=== PATIENT | female | born 1985 | race Caucasian/White ===

== ENCOUNTER 2016-11-27 06:48 | Inpatient (IN) | payer MEDICAID ==
[~2016-11-27] VITALS: Ht 167.6 cm; Wt 111.3 kg
[2016-11-27] VITALS (45 sets, daily range): BP systolic 53–151; BP diastolic 28–79
[~2016-11-27 06:48] MED LIST: FEXO180T84 PO; LETR2.5T5 PO; MONT10TA24 PO; MULT1TAB69 PO; OXYC-202 PO
[2016-11-27] MEDS ORDERED: D5 LR IV SOLUTION 1,000 ML IV ONE (07:13)
[2016-11-27] MEDS ORDERED: D5 LR IV SOLUTION 1,000 ML IV SCH (07:31)
[2016-11-27] MEDS ORDERED: OXYTOCIN/NORMAL SALINE 500 ML IV SCH ×2 (07:31→07:32)
--- NOTE | 2016-11-27 07:39 | OB Bishop Score ---
Parada Score 9 GAVINO PLAZA MD Nov 27, 2016 7:39 am
--- NOTE | 2016-11-27 07:42 | History & Physical ---
History and Physical Date Seen by Provider: Nov 27, 2016 Time Seen by Provider: 07:40 this patient is a 31-year-old white female with an EDC of 9 [phone] putting her now at 39 weeks gestation. She was admitted for induction of labor. She's had no complications with this . Her GBS culture after 35 weeks gestation was negative. She denies rupture membranes or bleeding. She has only rare contractions. Allergies are to aspirin which causes facial swelling and on and oil which causes swelling in the throat Medications are vitamins Singulair and Zyrtec Asked medical history, past surgical history, obstetric history, family history , and social histories are per the antepartum record HEENT exam is normal Neck supple no lymphadenopathy no thyromegaly Abdomen is gravid soft nontender nondistended Extremities show no clubbing cyanosis. There is no Homans sign. Pelvic exam is pending Lab is pending monitor shows normal heart rate pattern with some uterine irritability Assessment and plan term at 39 weeks gestation admitted for induction of labor electively. Plan is for an epidural as desired. Anticipate vaginal delivery. the elective induction of labor at 39 weeks gestation Allergies and Home Medications Allergies Coded Allergies: aspirin (Verified Allergy, Unknown, facial swelling, 12/13/15) Home Medications Fexofenadine HCl 180 Mg Tablet, 180 MG PO HS, (Reported) Letrozole 2.5 Mg Tablet, 2.5 MG PO DAILY, #5 Prescribed by: GAVINO MALHOTRA on 12/16/15 075 Montelukast Sodium 10 Mg Tablet, 10 MG PO HS, (Reported) Multivitamin 1 Each Tablet, 1 EACH PO HS, (Reported) Oxycodone HCl/Acetaminophen 1 Each Tablet, 1-2 TAB PO Q4H PRN for PAIN, #60 Prescribed by: GAVINO MALHOTRA on 12/16/15 075 GAVINO PLAZA MD Nov 27, 2016 7:42 am
[2016-11-27] MEDS ORDERED: MEASLES,MUMPS,RUBELLA 1 EA INJ SC ONE (07:45)
[2016-11-27] MEDS ORDERED: TETANUS,DIPTH,PERTUSS P/F (BOOSTRIX) 0.5 ML VIAL IM ONE (07:45)
[2016-11-27] MEDS ORDERED: oxyCODONE/APAP 10/325MG (PERCOCET 10) TABLET PO PRN (07:45)
[2016-11-27] MEDS ORDERED: CATHETER FLUSH 10 ML SYR IV PRN (07:45)
[2016-11-27 08:17] LABS: BASOPHILS % (AUTO) 0 % (0-10); EOSINOPHILS # (AUTO) 0.2 10^3/uL (0.0-0.3); EOSINOPHILS % (AUTO) 2 % (0-10); LYMPHOCYTES # (AUTO) 1.7 X 10^3 (1.0-4.0); LYMPHOCYTES % (AUTO) 18 % (12-44); MEAN CORPUSCULAR HEMOGLOBIN 28 PG (25-34); MEAN CORPUSCULAR HGB CONC 33 G/DL (32-36); MEAN CORPUSCULAR VOLUME 84 FL (80-99); MEAN PLATELET VOLUME 11.9 FL (7.4-10.4); MONOCYTES # (AUTO) 0.9 X 10^3 (0.0-1.0); MONOCYTES % (AUTO) 9 % (0-12); NEUTROPHILS # (AUTO) 6.5 X 10^3 (1.8-7.8); NEUTROPHILS % (AUTO) 70 % (42-75); PLATELET COUNT 178 10^3/uL (130-400); RED CELL DISTRIBUTION WIDTH 13.7 % (10.0-14.5); WHITE BLOOD COUNT 9.3 10^3/uL (4.3-11.0)
[2016-11-27] MEDS ORDERED: SUFENTA 0.6MCG/ML BUPIVA 0.125 100 ML ONE (08:21)
[2016-11-27] MEDS ORDERED: LIDOCAINE/EPI 2% 1:200,00 (XYLOCAINE) 10 ML VIAL ONE (08:22)
[2016-11-27] MEDS ORDERED: fentaNYL INJECTION 100 MCG/2 ML AMP ONE (09:46)
[2016-11-27] MEDS ORDERED: LACTATED RINGERS 1,000 ML IV ONE (10:25)
[2016-11-27] MEDS ORDERED: PREN1TAB86 PO ×2 (10:28→10:30)
[2016-11-27] MEDS ORDERED: CETI10CA PO (10:28)
[2016-11-27] MEDS ORDERED: EPIDURAL (SUFENTA 0.6MCG/ML BUPIVA 0.125%) 100 ML BAG EPI PRN (10:30)
[2016-11-27] MEDS ORDERED: ONDANSETRON 4 MG/2 ML (SDV) Z0FRAN IV PRN (10:30)
[2016-11-27] MEDS ORDERED: NALOXONE 0.4 MG/ML 1 ML (NARCAN) VIAL IV PRN ×2 (10:30)
[2016-11-27] MEDS ORDERED: diphenhydrAMINE 50 MG/ML INJ (BENADRYL) IV PRN (10:30)
[2016-11-27] MEDS ORDERED: RANI150T15 PO (10:30)
[2016-11-27] MEDS ORDERED: METOCLOPRAMIDE INJ 10 MG/2 ML (REGLAN) IV PRN (10:30)
[2016-11-27] MEDS ORDERED: LIDOCAINE/EPI 2% 1:200,00 (XYLOCAINE) 10 ML VIAL INJ ONE (12:33)
[2016-11-27] MEDS ORDERED: METHYLERGONOVINE 0.2 MG/ML (METHERGINE) AMP IM ONE (12:55)
[2016-11-27] MEDS ORDERED: METHYLERGONOVINE 0.2 MG/ML (METHERGINE) AMP ONE (12:56)
[2016-11-27] MEDS: BENZOCAINE/MENTHOL (DERMOPLAST) 56 ML CAN TP PRN (14:13)
[2016-11-27] MEDS: HYDROcodone/APAP 7.5 MG/325 MG (LORTAB, LORCET PLUS) TABLET PO PRN ×2 (16:30→20:33)
[2016-11-27] MEDS ORDERED: WITCH HAZEL(TUCKS) 40 EA JAR TOP PRN ×2 (17:45→19:00)
[2016-11-27] MEDS ORDERED: DIBUCAINE (NUPERCAINAL) 1% OINT 30 GM TOP PRN (17:45)
[2016-11-27] MEDS: DOCUSATE SODIUM 100 MG (COLACE) CAP PO SCH (20:32)
[2016-11-28] MEDS: HYDROcodone/APAP 7.5 MG/325 MG (LORTAB, LORCET PLUS) TABLET PO PRN ×4 (02:07→17:24)
[2016-11-28 06:28] VITALS: BP 108/71
--- NOTE | 2016-11-28 07:00 | OPERATIVE REPORT ---
DATE OF SERVICE: 11/27/2016 The patient delivered by term spontaneous vaginal delivery a viable female infant with Apgars of 8 and 9 at 1 and 5 respectively, weight 7 pounds 10 ounces, time of 12:45. The infant was delivered from straight OP position over an episiotomy that was performed at the patient's request as she could not push the baby out straight OP. The episiotomy was performed and the baby was delivered fairly promptly with the next series of pushes. The had a shoulder cord that was slipped off of each shoulder and the delivery completed atraumatically. The infant was bulb suctioned on delivery of the head and again upon completion of delivery. Umbilical cord was doubly clamped when it was pulseless. The father cut the cord. The baby was passed to mom's abdomen. The cervix, vagina, rectum and perineum were examined and found intact except for the midline episiotomy which was repaired in the usual manner with a single suture of 3-0 Vicryl Rapide. The uterus was somewhat atonic responding eventually to IV Pitocin and finally to a single dose of IM Methergine. Estimated blood loss was right at 500 mL. The patient tolerated the delivery and recovery well and remained in LDR for recovery. The baby was remained in the LDR with the mother for recovery as well. Job ID: [id number] DocumentID: [id number] Dictated Date: 11/27/2016 15:21:17 Relief Manager Date: 11/28/2016 07:00:33 Dictated By: GAVINO PLAZA MD
--- NOTE | 2016-11-28 07:19 | Progress Note-Standard ---
Standard Progress Note Progress Notes/Assess & Plan Date Seen by Provider: Nov 28, 2016 Time Seen by Provider: 07:17 Progress/Assessment & Plan this patient is without complaint. She is ambulating, voiding, tolerating by mouth well, has good pain control. Patient is requesting discharge home. She denies chest pain, denies shortness breath, denies nausea, denies headache, denies dizziness or lightheadedness. Vital Signs Date Time Temp Pulse Resp B/P (MAP) Pulse Ox O2 Delivery O2 Flow Rate FiO2 11/28/16 06:28 98.4 102 18 108/71 97 Room Air 11/27/16 23:15 98.2 93 18 105/63 97 Room Air 11/27/16 20:10 99.0 102 18 112/61 97 Room Air 11/27/16 15:15 92 18 119/56 Room Air 11/27/16 15:00 95 18 123/59 Room Air 11/27/16 14:45 95 18 116/58 Room Air 11/27/16 14:30 97 18 110/57 Room Air 11/27/16 14:15 105 18 117/57 Room Air 11/27/16 14:00 98.1 120 18 131/60 Room Air 11/27/16 13:45 90 18 103/56 Room Air 11/27/16 13:33 96 18 99/58 Room Air 11/27/16 13:30 99 18 103/56 Room Air 11/27/16 13:24 87 18 104/52 Room Air 11/27/16 13:20 84 18 75/46 Room Air 11/27/16 13:06 96 18 91/55 99 Room Air 11/27/16 13:04 100 18 53/28 99 Room Air 11/27/16 13:03 96 18 61/28 99 Room Air 11/27/16 13:01 87 18 71/32 99 Room Air 11/27/16 13:00 79 18 80/44 99 Room Air 11/27/16 12:46 129 18 117/67 99 Room Air 11/27/16 12:15 118 18 151/70 99 Room Air 11/27/16 12:00 106 18 146/65 99 Room Air 11/27/16 11:45 101 18 132/67 99 Room Air 11/27/16 11:30 98.0 93 18 128/66 100 Room Air 11/27/16 11:15 89 18 126/76 99 Room Air 11/27/16 11:00 96 18 125/72 99 Room Air 11/27/16 10:45 94 18 121/61 98 Room Air 11/27/16 10:30 93 18 106/54 97 Room Air 11/27/16 10:15 95 18 113/55 96 Room Air 11/27/16 10:09 106 18 116/57 97 Room Air 11/27/16 10:06 97 18 117/57 97 Room Air 11/27/16 10:03 105 18 129/58 97 Room Air 11/27/16 10:00 98.2 102 18 105/53 98 Room Air 11/27/16 09:57 103 18 115/58 98 Room Air 11/27/16 09:54 110 18 117/58 98 Room Air 11/27/16 09:51 117 18 135/73 98 Room Air 11/27/16 09:48 100 18 133/71 99 Room Air 11/27/16 09:46 105 18 138/73 99 Room Air 11/27/16 09:30 102 18 126/76 Room Air 11/27/16 09:00 98.2 101 18 143/79 Room Air 11/27/16 08:45 100 18 135/74 Room Air 11/27/16 08:30 96 18 125/65 Room Air 11/27/16 08:15 95 18 126/67 Room Air 11/27/16 08:00 100 18 126/72 Room Air 11/27/16 07:45 100 18 111/59 Room Air Vital signs are stable. Patient is afebrile. Fundus is firm below the umbilicus and nontender. Extremities show no clubbing cyanosis. There is no Homans sign. There is some pretibial pitting edema that is normal. Assessment and plan day number 1 status post term spontaneous vaginal delivery at 39 weeks gestation. Patient doing well and will be allowed discharge home. Final Diagnosis spontaneous vaginal delivery at 39 weeks gestation GAVINO PLAZA MD Nov 28, 2016 7:19 am
[2016-11-28] MEDS ORDERED: DOCU100C37 PO (07:20)
[2016-11-28] MEDS ORDERED: OXYC-202 PO (07:20)
--- NOTE | 2016-11-28 07:21 | Discharge Instructions ---
Discharge Instructions Discharge Medications New, Converted or Re-Newed RX: RX on Chart Patient Instructions Patient Instructions: as directed Return to The Hospital For: as directed Activity & Diet Discharge Diet: No Restrictions Activity as Tolerated: No Orders-Post D/C & Referrals Follow Up Appt: Call to make follow up appt. for patient in 4 to 6 weeks. Activity Per routine post vaginal delivery instructions. Please call in RX to patient pharmacy. Diet as tolerated Patient may shower or tub bathe as desired. GAVINO PLAZA MD Nov 28, 2016 7:21 am
[2016-11-28] MEDS: DOCUSATE SODIUM 100 MG (COLACE) CAP PO SCH ×2 (09:26→21:30)
--- NOTE | 2016-11-28 13:06 | Anesthesia-Regional Post-Op ---
Regional Patient Condition Mental Status: Alert, Oriented x3 Circulation: Same as Pre-Op Headache: Absent Sensation: Full Recovery Motor Block: Absent Post Op Complications Complications None Follow Up Care/Instructions Patient Instructions None needed. Anesthesia/Patient Condition Patient is doing well, no complaints, stable vital signs, no apparent adverse anesthesia problems. No complications reported per nursing. KENNA GARCIA CRNA Nov 28, 2016 13:06
[2016-11-28 17:25] VITALS: BP 119/60
[2016-11-28 21:42] VITALS: BP 125/72
[2016-11-29] MEDS: HYDROcodone/APAP 7.5 MG/325 MG (LORTAB, LORCET PLUS) TABLET PO PRN ×2 (03:13→08:42)
[2016-11-29 03:15] VITALS: BP 117/70
[2016-11-29] MEDS: BENZOCAINE/MENTHOL (DERMOPLAST) 56 ML CAN TP PRN (06:47)
--- NOTE | 2016-11-29 08:24 | Progress Note-Standard ---
Standard Progress Note Progress Notes/Assess & Plan Date Seen by Provider: Nov 29, 2016 Time Seen by Provider: 08:23 Progress/Assessment & Plan this patient is without complaint. She is ambulating, voiding, tolerating by mouth well, has good pain control. Patient is requesting discharge home. She denies chest pain, denies shortness breath, denies nausea, denies headache, denies dizziness or lightheadedness. Vital Signs Date Time Temp Pulse Resp B/P (MAP) Pulse Ox O2 Delivery O2 Flow Rate FiO2 11/28/16 06:28 98.4 102 18 108/71 97 Room Air 11/27/16 23:15 98.2 93 18 105/63 97 Room Air 11/27/16 20:10 99.0 102 18 112/61 97 Room Air 11/27/16 15:15 92 18 119/56 Room Air 11/27/16 15:00 95 18 123/59 Room Air 11/27/16 14:45 95 18 116/58 Room Air 11/27/16 14:30 97 18 110/57 Room Air 11/27/16 14:15 105 18 117/57 Room Air 11/27/16 14:00 98.1 120 18 131/60 Room Air 11/27/16 13:45 90 18 103/56 Room Air 11/27/16 13:33 96 18 99/58 Room Air 11/27/16 13:30 99 18 103/56 Room Air 11/27/16 13:24 87 18 104/52 Room Air 11/27/16 13:20 84 18 75/46 Room Air 11/27/16 13:06 96 18 91/55 99 Room Air 11/27/16 13:04 100 18 53/28 99 Room Air 11/27/16 13:03 96 18 61/28 99 Room Air 11/27/16 13:01 87 18 71/32 99 Room Air 11/27/16 13:00 79 18 80/44 99 Room Air 11/27/16 12:46 129 18 117/67 99 Room Air 11/27/16 12:15 118 18 151/70 99 Room Air 11/27/16 12:00 106 18 146/65 99 Room Air 11/27/16 11:45 101 18 132/67 99 Room Air 11/27/16 11:30 98.0 93 18 128/66 100 Room Air 11/27/16 11:15 89 18 126/76 99 Room Air 11/27/16 11:00 96 18 125/72 99 Room Air 11/27/16 10:45 94 18 121/61 98 Room Air 11/27/16 10:30 93 18 106/54 97 Room Air 11/27/16 10:15 95 18 113/55 96 Room Air 11/27/16 10:09 106 18 116/57 97 Room Air 11/27/16 10:06 97 18 117/57 97 Room Air 11/27/16 10:03 105 18 129/58 97 Room Air 11/27/16 10:00 98.2 102 18 105/53 98 Room Air 11/27/16 09:57 103 18 115/58 98 Room Air 11/27/16 09:54 110 18 117/58 98 Room Air 11/27/16 09:51 117 18 135/73 98 Room Air 11/27/16 09:48 100 18 133/71 99 Room Air 11/27/16 09:46 105 18 138/73 99 Room Air 11/27/16 09:30 102 18 126/76 Room Air 11/27/16 09:00 98.2 101 18 143/79 Room Air 11/27/16 08:45 100 18 135/74 Room Air 11/27/16 08:30 96 18 125/65 Room Air 11/27/16 08:15 95 18 126/67 Room Air 11/27/16 08:00 100 18 126/72 Room Air 11/27/16 07:45 100 18 111/59 Room Air Vital signs are stable. Patient is afebrile. Fundus is firm below the umbilicus and nontender. Extremities show no clubbing cyanosis. There is no Homans sign. There is some pretibial pitting edema that is normal. Assessment and plan day number 1 status post term spontaneous vaginal delivery at 39 weeks gestation. Patient doing well and will be allowed discharge home. November 29, 2016 Patient is without complaint. Her discharge yesterday was held secondary to increased bilirubin in her baby. She has regular rate for discharge home today. She is ambulating, voiding, tolerating fairly well, has no complaints. Vital Signs Date Time Temp Pulse Resp B/P (MAP) Pulse Ox O2 Delivery O2 Flow Rate FiO2 11/29/16 03:15 98.8 86 18 117/70 97 11/28/16 21:42 98.6 93 18 125/72 99 Room Air 11/28/16 17:25 97.4 88 18 119/60 99 Room Air Vital signs are stable. Patient is afebrile. Fundus is firm below the umbilicus and nontender. Extremities show no clubbing or cyanosis. There is no Homans sign. Assessment and plan day number 2 status post term spontaneous vaginal delivery at 39 weeks gestation. Patient is doing well and will be discharged home. If her baby is not released she will be allowed to remain in Final Diagnosis 39 week spontaneous vaginal delivery GAVINO PLAZA MD Nov 29, 2016 8:24 am
[2016-11-29 08:35] VITALS: BP 119/79
[2016-11-29] MEDS: DOCUSATE SODIUM 100 MG (COLACE) CAP PO SCH (08:43)
== END 2016-11-29 13:15 | disposition home or self-care (01) | DRG 775 ==
LOC: LDRP 06:48
PROVIDERS: ADMIT Obstetrics & Gynecology; ATTEND Obstetrics & Gynecology
PROC: 10E0XZZ Delivery of Products of Conception, External Approach (ICD-10-PCS; principal; 2016-11-27)
PROC: 0W8NXZZ Division of Female Perineum, External Approach (ICD-10-PCS; 2016-11-27)
PROC: 3E033VJ Introduction of Other Hormone into Peripheral Vein, Percutaneous Approach (ICD-10-PCS; 2016-11-27)
DX: O80 Encounter for full-term uncomplicated delivery (principal); Z3A.39 39 weeks gestation of pregnancy; Z37.0 Single live birth
CPT/HCPCS: 36415; 85025; 86850; 86900; 86901

== ENCOUNTER 2017-09-29 09:51 | Inpatient (IN) | payer MEDICAID ==
[~2017-09-29] VITALS: Ht 165.1 cm; Wt 112.2 kg
[2017-09-29] VITALS (43 sets, daily range): BP systolic 76–150; BP diastolic 35–87
[~2017-09-29 09:51] MED LIST changes: +CETI10CA PO; +DOCU100C37 PO; +PREN1TAB86 PO; +RANI150T46 PO
[2017-09-29] MEDS ORDERED: D5 LR IV SOLUTION 1,000 ML IV ONE (10:59)
[2017-09-29] MEDS ORDERED: D5 LR IV SOLUTION 1,000 ML IV SCH ×2 (11:38→11:43)
[2017-09-29] MEDS ORDERED: OXYTOCIN/NORMAL SALINE 500 ML IV SCH ×2 (11:43→18:47)
[2017-09-29] MEDS ORDERED: MINERAL OIL CONCENTRATE 99.9% 15 ML UDC TOP PRN (11:45)
[2017-09-29] MEDS ORDERED: DOCU100C37 PO (11:48)
[2017-09-29] MEDS ORDERED: OXYC-197 PO (11:48)
--- NOTE | 2017-09-29 11:49 | Discharge Instructions ---
Discharge Instructions Discharge Medications New, Converted or Re-Newed RX: RX on Chart Patient Instructions Patient Instructions: As directed Return to The Hospital For: As directed Activity & Diet Discharge Diet: No Restrictions Activity as Tolerated: No Orders-Post D/C & Referrals Follow Up Appt: Call to make follow up appt. for patient in 4 weeks. Activity Per routine post vaginal delivery instructions. Please call in RX to patient pharmacy. Diet as tolerated Patient may shower or tub bathe as desired. GAVINO PLAZA MD Sep 29, 2017 11:49 am
[2017-09-29 11:57] LABS: BASOPHILS % (AUTO) 0 % (0-10); EOSINOPHILS # (AUTO) 0.1 10^3/uL (0.0-0.3); EOSINOPHILS % (AUTO) 1 % (0-10); HEMATOCRIT 32 % (35-52); HEMOGLOBIN 9.9 G/DL (11.5-16.0); LYMPHOCYTES # (AUTO) 1.6 X 10^3 (1.0-4.0); LYMPHOCYTES % (AUTO) 16 % (12-44); MEAN CORPUSCULAR HEMOGLOBIN 24 PG (25-34); MEAN CORPUSCULAR HGB CONC 31 G/DL (32-36); MEAN CORPUSCULAR VOLUME 75 FL (80-99); MEAN PLATELET VOLUME 11.7 FL (7.4-10.4); MONOCYTES % (AUTO) 10 % (0-12); NEUTROPHILS # (AUTO) 7.1 X 10^3 (1.8-7.8); NEUTROPHILS % (AUTO) 73 % (42-75); PLATELET COUNT 196 10^3/uL (130-400); RED BLOOD COUNT 4.19 10^6/uL (4.35-5.85); RED CELL DISTRIBUTION WIDTH 16.3 % (10.0-14.5); WHITE BLOOD COUNT 9.8 10^3/uL (4.3-11.0)
[2017-09-29] MEDS ORDERED: SUFENTA 0.6MCG/ML BUPIVA 0.125 100 ML ONE (12:04)
[2017-09-29] MEDS ORDERED: BUPIVACAINE 0.25% 30 ML (SENSORCAINE) VIAL ONE (12:15)
[2017-09-29] MEDS ORDERED: fentaNYL INJECTION 100 MCG/2 ML AMP ONE (12:16)
[2017-09-29] MEDS ORDERED: LACTATED RINGERS 1,000 ML IV ONE (12:48)
[2017-09-29] MEDS ORDERED: CATHETER FLUSH 10 ML SYR IV PRN (13:00)
[2017-09-29] MEDS ORDERED: diphenhydrAMINE 50 MG/ML INJ (BENADRYL) IV PRN (13:00)
[2017-09-29] MEDS ORDERED: NALOXONE 0.4 MG/ML 1 ML (NARCAN) VIAL IV PRN (13:00)
[2017-09-29] MEDS ORDERED: ONDANSETRON 4 MG/2 ML (SDV) Z0FRAN IV PRN (13:00)
[2017-09-29] MEDS ORDERED: EPIDURAL (SUFENTA 0.6MCG/ML BUPIVA 0.125%) 100 ML BAG EPI SCH (13:00)
[2017-09-29] MEDS ORDERED: CATHETER FLUSH 10 ML SYR IV SCH (14:00)
[2017-09-29] MEDS ORDERED: LIDOCAINE/EPI 2% 1:200,00 (XYLOCAINE) 10 ML VIAL ONE (15:28)
[2017-09-29] MEDS ORDERED: METHYLERGONOVINE 0.2 MG/ML (METHERGINE) AMP ONE (16:48)
[2017-09-29] MEDS ORDERED: METHYLERGONOVINE 0.2 MG/ML (METHERGINE) AMP IM ONE (17:00)
[2017-09-29] MEDS ORDERED: TETANUS,DIPTH,PERTUSS P/F (BOOSTRIX) 0.5 ML VIAL IM ONE (19:00)
[2017-09-29] MEDS ORDERED: oxyCODONE/APAP 5/325MG (PERCOCET 5) TABLET PO PRN (19:00)
[2017-09-29] MEDS ORDERED: BENZOCAINE/MENTHOL (DERMOPLAST) 56 ML CAN TP PRN (19:00)
[2017-09-29] MEDS ORDERED: ONDANSETRON 4 MG/2 ML (SDV) Z0FRAN IVP PRN (19:00)
[2017-09-29] MEDS ORDERED: MEASLES,MUMPS,RUBELLA 1 EA INJ SC ONE (19:00)
--- NOTE | 2017-09-29 20:45 | OPERATIVE REPORT ---
DATE OF SERVICE: 09/29/2017 DELIVERY NOTE The patient delivered by term spontaneous vaginal delivery a viable male with Apgars of 7 and 9 at 1 and 5 minutes respectively, weight of 7 pounds 12 ounces and a time of 15:33. Cord blood pH is pending. The patient delivered over a first-degree perineal laceration under epidural analgesia. The infant was bulb suctioned on delivery of the head and a single nuchal cord was easily released and the delivery completed atraumatically. The was bulb suctioned. As the cord became pulseless, it was doubly clamped. The father cut the cord, the baby was passed to mom's abdomen. The placenta delivered spontaneously Ontiveros. It was normal with a 3-vessel cord. The cervix, vagina, rectum and perineum were examined and found intact, except for small periurethral abrasions that were hemostatic and required no repair and is an approximately 2.5 cm perineal posterior fourchette laceration that was repaired with a single suture of 3-0 Vicryl in a running locked fashion under epidural analgesia. Sponge and needle counts were correct on completion of delivery and the repair. Estimated blood loss was around 250 mL. The patient tolerated the delivery and the repair well and remained in the LDR for recovery. The baby remained with the mom. Job ID: [id number] DocumentID: [id number] Dictated Date: 09/29/2017 15:48:12 Rail Director Date: 09/29/2017 20:44:48 Dictated By: GAVINO PLAZA MD
[2017-09-29] MEDS: DOCUSATE SODIUM 100 MG (COLACE) CAP PO SCH (22:00)
[2017-09-29] MEDS: ACETAMINOPHEN 500 MG TAB (TYLENOL) PO PRN (23:35)
[2017-09-30] VITALS (7 sets, daily range): BP systolic 105–134; BP diastolic 56–80
[2017-09-30] MEDS: ACETAMINOPHEN 500 MG TAB (TYLENOL) PO PRN ×4 (05:19→23:19)
--- NOTE | 2017-09-30 07:00 | Progress Note-Standard ---
Standard Progress Note Progress Notes/Assess & Plan Date Seen by Provider: Sep 30, 2017 Time Seen by Provider: 06:58 Progress/Assessment & Plan This patient is without complaint. She is ambulating, voiding, tolerating oral intake without. Patient has good pain control. Patient is requesting discharge home. Vital Signs 09/30/17 05:10 Temp 97.6 Pulse 95 Resp 18 B/P (MAP) 113/77 (89) Pulse Ox 98 O2 Delivery Room Air Vital signs are stable. Patient is afebrile. Fundus is firm below the umbilicus and nontender. Extremities show no clubbing cyanosis. There is no Homans sign. There is some pretibial pitting edema that is normal. Assessment and plan day number 1 status post term spontaneous vaginal delivery doing well. Plan is for discharge home today or tomorrow as preferred by patient Final Diagnosis GAVINO TOA MD Sep 30, 2017 7:00 am
--- NOTE | 2017-09-30 08:07 | Anesthesia-Regional Post-Op ---
Regional Patient Condition Mental Status: Alert, Oriented x3 Circulation: Same as Pre-Op Headache: Absent Sensation: Full Recovery Motor Block: Absent Post Op Complications Complications None Follow Up Care/Instructions Patient Instructions None needed. Anesthesia/Patient Condition Patient is doing well, no complaints, stable vital signs, no apparent adverse anesthesia problems. No complications reported per nursing. D/C home per [facility] Criteria: Yes [place] CRNA Sep 30, 2017 08:07
[2017-09-30] MEDS: DOCUSATE SODIUM 100 MG (COLACE) CAP PO SCH ×2 (08:31→23:18)
[2017-10-01 04:45] VITALS: BP 118/73
[2017-10-01] MEDS: ACETAMINOPHEN 500 MG TAB (TYLENOL) PO PRN ×2 (04:56→11:03)
--- NOTE | 2017-10-01 07:42 | Postpartum Progress Note ---
Note Note Day # 1 Subjective: Covering for Dr. Teixeira. Patient only complaint is burning with urination that is getting better today, but would liked to be checked for a UTI before dismissal. Ambulating, voiding. Tolerating a regular diet without nausea or vomiting. Normal lochia. Pain is well controlled with oral pain medications. Objective: Vital Sign - Last 24 Hours 09/30/17 09/30/17 09/30/17 09/30/17 08:57 11:35 16:52 20:24 Temp 98.0 97.5 97.5 98.1 Pulse 94 88 80 78 Resp 18 18 18 18 B/P (MAP) 134/68 (90) 127/68 (87) 105/56 (72) 125/80 (95) Pulse Ox 98 99 100 100 O2 Delivery Room Air Room Air Room Air Room Air 09/30/17 10/01/17 23:20 04:45 Temp 97.4 97.1 Pulse 83 85 Resp 18 18 B/P (MAP) 117/67 (84) 118/73 (88) Pulse Ox 98 97 O2 Delivery Room Air Room Air Intake and Output 09/30/17 09/30/17 10/01/17 15:00 23:00 07:00 Intake Total 875 ml Balance 875 ml Physical Exam: General - Alert and oriented, no apparent distress Abdomen - Soft, appropriately tender to palpation, non-distended, fundus firm at umbilicus Extremities - no edema, negative Vivi's bilaterally Assessment: PPD 2 NVD Dysuria-likely secondary to vaginal delivery Plan: Routine care. Encourage breast feeding. Encourage ambulation. Ferrous sulfate supplementation. UA ordered will treat accordingly Plan for discharge today Vitals - Labs Vital Signs - I&O Vital Signs Date Time Temp Pulse Resp B/P (MAP) Pulse Ox O2 Delivery O2 Flow Rate FiO2 10/01/17 04:45 97.1 85 18 118/73 (88) 97 Room Air 09/30/17 23:20 97.4 83 18 117/67 (84) 98 Room Air 09/30/17 20:24 98.1 78 18 125/80 (95) 100 Room Air 09/30/17 16:52 97.5 80 18 105/56 (72) 100 Room Air 09/30/17 11:35 97.5 88 18 127/68 (87) 99 Room Air 09/30/17 08:57 98.0 94 18 134/68 (90) 98 Room Air I & O 10/01/17 07:00 Intake Total 875 ml Balance 875 ml RAMY WHITE DO Oct 01, 2017 07:42
[2017-10-01 08:00] VITALS: BP 104/64
[2017-10-01] MEDS: DOCUSATE SODIUM 100 MG (COLACE) CAP PO SCH (08:29)
[2017-10-01 09:25] LABS: BILIRUBIN,URINE NEGATIVE (NEGATIVE); CLARITY,URINE CLEAR; COLOR,URINE YELLOW; GLUCOSE, URINE (UA) NEGATIVE (NEGATIVE); KETONES,URINE NEGATIVE (NEGATIVE); LEUKOCYTE ESTERASE ,URINE 3+ (NEGATIVE); NITRITE,URINE NEGATIVE (NEGATIVE); PH,URINE 7 (5-9); PROTEIN,URINE 2+ (NEGATIVE); UROBILINOGEN,URINE NORMAL (NORMAL)
[2017-10-01 09:33] LABS: BACTERIA,URINE FEW /HPF; RBC,URINE >100 /HPF; WBC,URINE 25-50 /HPF
[2017-10-01] MEDS ORDERED: TETANUS,DIPTH,PERTUSS P/F (BOOSTRIX) 0.5 ML VIAL IM ONE (09:36)
[2017-10-01] MEDS ORDERED: CEPH-507 PO (10:12)
[2017-10-01 12:00] VITALS: BP 124/73
--- NOTE | 2017-10-11 08:21 | HISTORY AND PHYSICAL ---
DATE OF SERVICE: LATE ENTRY ADMIT HISTORY AND PHYSICAL HISTORY OF PRESENT ILLNESS: The patient is a 32-year-old G3, P2 white female with an EDC of 10/13/2017, who was seen in clinic on 09/29/2017. She was found to be dilated 5 to 6 cm. Her history was significant for two previous term vaginal deliveries with relatively short labors. Her last labor was less than two hours. She was sent directly to labor and delivery from my clinic for labor management and delivery. ALLERGIES: To ASPIRIN, which causes her face to swell. MEDICATIONS: Singulair, Zyrtec and vitamins. Past medical history, past surgical history, obstetric history, family history and social history was per her antepartum record. PHYSICAL EXAMINATION: HEENT: Normal. NECK: Supple, no lymphadenopathy and no thyromegaly. ABDOMEN: Gravid, soft, nontender and nondistended. EXTREMITIES: Showed no clubbing or cyanosis. There was no Homans sign. PELVIC: As noted above showed a cervix 5 to 6 cm dilated, 50% effaced, 0 station, vertex presentation and soft with a bulging bag. The patient was sent directly to labor and delivery. ASSESSMENT: Term in labor with advanced cervical dilation and history of rapid deliveries. PLAN: Plan was for admission and expectant management. Job ID: [id number] DocumentID: [id number] Dictated Date: 10/11/2017 08:03:51 Funeral Location Manager Date: 10/11/2017 08:21:26 Dictated By: GAVINO PLAZA MD
== END 2017-10-01 15:45 | disposition home or self-care (01) | DRG 775 ==
LOC: LDRP 09:51
PROVIDERS: ADMIT Obstetrics & Gynecology; ATTEND Obstetrics & Gynecology
PROC: 10E0XZZ Delivery of Products of Conception, External Approach (ICD-10-PCS; principal; 2017-09-29)
PROC: 0HQ9XZZ Repair Perineum Skin, External Approach (ICD-10-PCS; 2017-09-29)
DX: O99.213 Obesity complicating pregnancy, third trimester (principal); E66.9 Obesity, unspecified; Z68.41 Body mass index [BMI] 40.0-44.9, adult; O70.0 First degree perineal laceration during delivery; O69.81X0 Labor and delivery complicated by cord around neck, without compression, not applicable or unspecified; O99.89 Other specified diseases and conditions complicating pregnancy, childbirth and the puerperium; R30.0 Dysuria; Z3A.38 38 weeks gestation of pregnancy; Z37.0 Single live birth
CPT/HCPCS: 36415; 81000; 85025; 86850; 86900; 86901; 87088; 90715

== ENCOUNTER 2021-10-08 08:08 | Emergency (ER) | payer MEDICAID ==
[~2021-10-08] VITALS: Ht 167.7 cm; Wt 102.0 kg
[~2021-10-08 08:08] MED LIST changes: +CEPH-507 PO; -LETR2.5T5 PO; +LETR2.5T6 PO; +MONT-40 PO; -MONT10TA24 PO; +MULT-567 PO; -MULT1TAB69 PO; -OXYC-202 PO; +OXYC1TAB12 PO; +OXYC1TAB87 PO; +RANI-613 PO; -RANI150T46 PO
--- NOTE | 2021-10-08 08:18 | ED GU-Female ---
General Stated Complaint: VAGINAL BLEEDING (9W PREG) History of Present Illness Date Seen by Provider: Oct 08, 2021 Time Seen by Provider: 08:17 Initial Comments 36-year-old female presents with nonpainful vaginal bleeding. Patient reports that she is approximately 9 weeks 5 days with her last menstrual period August 01. Patient reports that yesterday she did a home Doppler and had her heart rate in the 150s. That today she awoke with bleeding and passed a large clot. She still does not have any vaginal pain. That the bleeding has resolved. Allergies and Home Medications Allergies Coded Allergies: aspirin (Verified Allergy, Unknown, facial swelling, 12/13/15) Patient Home Medication List Home Medication List Reviewed: Yes Cephalexin (Keflex) 500 Mg Capsule, 500 MG PO QID Prescribed by: ANDREZ ARCINIEGA on 10/01/17 1012 Cetirizine HCl (Zyrtec) 10 Mg Capsule, 10 MG PO DAILY, (Reported) Entered as Reported by: JOSIAH BENEDICT on 11/27/16 1028 Docusate Sodium (Docusate Sodium) 100 Mg Capsule, 100 MG PO BID Prescribed by: GAVINO MALHOTRA on 09/29/17 1148 Montelukast Sodium (Montelukast Sodium) 10 Mg Tablet, 10 MG PO HS, (Reported) Entered as Reported by: LAWRENCE BARRAGAN on 12/13/15 1238 Oxycodone HCl/Acetaminophen (Percocet 5-325 mg Tablet) 1 Each Tablet, 1 EACH PO Q4H Prescribed by: GAVINO MALHOTRA on 09/29/17 1148 Vit W-Ca,Fe,FA(<1 mg) ( Vitamins) 1 Each Tablet, 1 EACH PO DAILY, (Reported) Entered as Reported by: JOSIAH BENEDICT on 11/27/16 1030 Ranitidine HCl (Zantac) 150 Mg Tablet, 150 MG PO DAILY, (Reported) Entered as Reported by: JOSIAH BENEDICT on 11/27/16 1030 Review of Systems Review of Systems Constitutional: No chills, No fever EENTM: no symptoms reported Respiratory: no symptoms reported Cardiovascular: no symptoms reported Gastrointestinal: No abdominal pain, No nausea, No vomiting Genitourinary: see HPI; denies flank pain, denies pain : Yes LMP: August 01, 2021 Musculoskeletal: no symptoms reported Skin: no symptoms reported Psychiatric/Neurological: No Symptoms Reported Endocrine: No Symptoms Reported Hematologic/Lymphatic: No Symptoms Reported Past Jqlmrtj-Pvrlqc-Czacnu Hx Immunizations Up To Date PED Vaccines UTD: Yes Seasonal Allergies Seasonal Allergies: Yes Past Medical History Surgeries: Yes (wisdom teeth 2008, d and c 2015) Respiratory: No Cardiac: No Neurological: No Reproductive Disorders: Yes Female Reproductive Disorders: Polycystic Ovarian Dis Sexually Transmitted Disease: No HIV/AIDS: No Genitourinary: No Gastrointestinal: No Musculoskeletal: No Endocrine: No HEENT: No Loss of Vision: Denies Hearing Impairment: Denies Cancer: No Psychosocial: No Integumentary: No Blood Disorders: No Adverse Reaction/Blood Tranf: No (N/A) Family Medical History Alcoholism PATERNAL GRANDFATHER Arthritis MATERNAL GRANDMOTHER Bone cancer PATERNAL GRANDMOTHER Osteoporosis MATERNAL GRANDMOTHER Physical Exam Vital Signs Vital Signs - First Documented 10/08/21 08:15 Temp 36.7 Pulse 117 Resp 18 B/P (MAP) 162/102 (122) Pulse Ox 99 O2 Delivery Room Air Capillary Refill : Height, Weight, BMI Height: 5'5.00" Weight: 247lbs. 6.0oz. [id number]; 41.2 BMI Method: General Appearance: WD/WN, no apparent distress HEENT: PERRL/EOMI, normal ENT inspection Neck: full range of motion, supple Cardiovascular: normal peripheral pulses, regular rate, rhythm Respiratory: lungs clear, normal breath sounds Gastrointestinal: non tender, soft Pelvic: other (deffered ) Back: normal inspection Extremities: normal range of motion, non-tender Neurologic/Psychiatric: alert, normal mood/affect, oriented x 3 Skin: normal color, warm/dry Progress/Results/Core Measures Suspected Sepsis SIRS Temperature: Pulse: Respiratory Rate: Blood Pressure / Mean: Results/Orders Lab Results Laboratory Tests Test 10/08/21 08:16 10/08/21 08:31 Range/Units Urine Color YELLOW Urine Clarity SL CLOUDY Urine pH 7.0 5-9 Urine Specific [place] 1.020 1.016-1.022 Urine Protein NEGATIVE NEGATIVE Urine Glucose (UA) NEGATIVE NEGATIVE Urine Ketones NEGATIVE NEGATIVE Urine Nitrite NEGATIVE NEGATIVE Urine Bilirubin NEGATIVE NEGATIVE Urine Urobilinogen 0.2 < = 1.0 MG/DL Urine Leukocyte Esterase NEGATIVE NEGATIVE Urine RBC (Auto) 3+ H NEGATIVE Urine RBC 5-10 H /HPF Urine WBC RARE /HPF Urine Squamous Epithelial Cells 2-5 /HPF Urine Crystals NONE /LPF Urine Bacteria TRACE /HPF Urine Casts NONE /LPF Urine Mucus SMALL H /LPF Urine Culture Indicated NO Human Chorionic Gonadotropin, Quant [id number] H <5 MIU/ML My Orders Orders - WICHO SCRUGGS DO Us Ob Single Fetus<14 [id number] (10/08/21 08:22) Hcg,Quantitative (10/08/21 08:22) Ua Culture If Indicated (10/08/21 08:34) Vital Signs/I&O 10/08/21 10/08/21 08:15 09:04 Temp 36.7 36.4 Pulse 117 80 Resp 18 16 B/P (MAP) 162/102 (122) 148/91 Pulse Ox 99 100 O2 Delivery Room Air Room Air Capillary Refill : Progress Note : Progress Note Patient's ultrasound shows a live intrauterine at 9 weeks 5 to 6 days. She does have a large subchorionic hematoma. Patient has an appoint with Dr. TEIXEIRA and approximately 1 week. Call and discuss patient with him. She is to just keep her appointment for next week and if she develops. Tight bleeding present to the ER for reevaluation Diagnostic Imaging Diagonstic Imaging: Ultrasound Plain Films/CT/US/NM/MRI: pelvis Comments Date of Exam:10/08/21 US OB SINGLE FETUS<14 [id number] PROCEDURE: US OB SINGLE FETUS <14 WKS. TECHNIQUE: Multiple Real-time grayscale images were obtained over the gravid uterus in various projections. INDICATION: Vaginal bleeding. FINDINGS: There is a single live intrauterine fetus with a crown-rump length of 3.1 cm, consistent with a 10 week 0 day gestation. There is a subchorionic fluid collection along the inferior portion of the uterus measuring approximately 3.7 x 4 x 3.5 cm. The heart rate is identified at 169 BPM. The maternal adnexa were visualized and appear normal. IMPRESSION: Single live intrauterine fetus consistent with a 10 week 0 day gestation. There is a rather large subchorionic hemorrhage noted. Departure Impression Primary Impression: Subchorionic hematoma in first trimester Qualified Codes: O41.8X10 - Other specified disorders of amniotic fluid and membranes, first trimester, not applicable or unspecified; O46.8X1 - Other antepartum hemorrhage, first trimester Disposition: HOME, SELF-CARE Condition: Stable Departure-Patient Inst. Referrals: NO,LOCAL PHYSICIAN (PCP/Family) Primary Care Physician Patient Instructions: Subchorionic Bleeding, Bleeding in Early ED Add. Discharge Instructions: Keep your appointment next week with Dr. Teixeira Return to the ER if you develop heavy bleeding similar to a menstrual cycle or any other concerns WICHO SCRUGGS DO Oct 08, 2021 08:18
[2021-10-08 08:39] LABS: BILIRUBIN,URINE NEGATIVE (NEGATIVE); CLARITY,URINE SL CLOUDY; COLOR,URINE YELLOW; GLUCOSE, URINE (UA) NEGATIVE (NEGATIVE); KETONES,URINE NEGATIVE (NEGATIVE); LEUKOCYTE ESTERASE ,URINE NEGATIVE (NEGATIVE); NITRITE,URINE NEGATIVE (NEGATIVE); PROTEIN,URINE NEGATIVE (NEGATIVE)
[2021-10-08 08:44] LABS: BACTERIA,URINE TRACE /HPF; WBC,URINE RARE /HPF
[2021-10-08 09:04] VITALS: BP 148/91
--- NOTE | 2021-10-08 09:08 | Diagnostic Imaging Report ---
PROCEDURE: US OB SINGLE FETUS <14 WKS. TECHNIQUE: Multiple Real-time grayscale images were obtained over the gravid uterus in various projections. INDICATION: Vaginal bleeding. FINDINGS: There is a single live intrauterine fetus with a crown-rump length of 3.1 cm, consistent with a 10 week 0 day gestation. There is a subchorionic fluid collection along the inferior portion of the uterus measuring approximately 3.7 x 4 x 3.5 cm. The heart rate is identified at 169 BPM. The maternal adnexa were visualized and appear normal. IMPRESSION: Single live intrauterine fetus consistent with a 10 week 0 day gestation. There is a rather large subchorionic hemorrhage noted. Dictated by: Dictated on workstation # [id number]
== END 2021-10-08 09:04 | disposition home or self-care (01) ==
LOC: EDUNIT# 08:08 → ER FS 08:09
DX: O20.9 Hemorrhage in early pregnancy, unspecified (principal); Z28.310 Unvaccinated for COVID-19; Z3A.10 10 weeks gestation of pregnancy
CPT/HCPCS: 36415; 76801; 81000; 84702

== ENCOUNTER → 2022-04-16 | Outpatient (CLI) | payer MEDICAID ==
--- NOTE | 2022-04-16 15:04 | Diagnostic Imaging Report ---
INDICATION: Vanishing twin. Study is performed to evaluate for growth and biophysical profile. TECHNIQUE: Multiple real-time grayscale images were obtained over the gravid uterus. COMPARISON: None FINDINGS: There is a single live fetus in a cephalic presentation. heart rate was recorded at 144 bpm. Placenta is posterior and fundal. No previa is detected. Amniotic fluid index is 11.7 cm. Cervical length is 4.6 cm. Biophysical profile was performed with a normal score of 8 out of 8. Biometrical measurements are as follows: Biparietal 8.87 cm, age 36 weeks 0 days. Head circumference 33.99 cm, age 39 weeks 1 days. Abdominal circumference 29.79 cm, age 33 weeks 6 days. Femur length 7.33 cm, age 37 weeks 4 days. Sonographic estimate age: 36 weeks 5 days. Sonographic estimated date of delivery: 05/09/2022. Estimated Weight: 2716 gm (+/- 397 gm). LMP percentile: 23%. heart rate: 144 beats per minute. number: 1 of 1. IMPRESSION: Single live IUP approximately 36-37 weeks gestational age. Biophysical profile was normal at 8 out of 8. Dictated by: Dictated on workstation # [id number]
== END ==
LOC: RAD 12:00
PROVIDERS: ATTEND Obstetrics & Gynecology
DX: Z36.89 Encounter for other specified antenatal screening (principal); Z3A.36 36 weeks gestation of pregnancy
CPT/HCPCS: 76805; 76819

== ENCOUNTER 2022-04-23 14:23 | Inpatient (IN) | payer MEDICAID ==
[2022-04-23] VITALS (47 sets, daily range): BP systolic 112–160; BP diastolic 55–84
[~2022-04-23] VITALS: Ht 167.6 cm; Wt 115.0 kg
[2022-04-23 15:00] LABS: BASOPHILS % (AUTO) 0 % (0-10); EOSINOPHILS # (AUTO) 0.1 10^3/uL (0.0-0.3); EOSINOPHILS % (AUTO) 1 % (0-10); HEMATOCRIT 37 % (35-52); HEMOGLOBIN 12.6 g/dL (11.5-16.0); LYMPHOCYTES % (AUTO) 18 % (12-44); MEAN CORPUSCULAR HEMOGLOBIN 29 pg (25-34); MEAN CORPUSCULAR HGB CONC 34 g/dL (32-36); MEAN CORPUSCULAR VOLUME 85 fL (80-99); MEAN PLATELET VOLUME 11.4 fL (9.0-12.2); MONOCYTES # (AUTO) 0.7 10^3/uL (0.0-1.0); MONOCYTES % (AUTO) 6 % (0-12); NEUTROPHILS # (AUTO) 8.1 10^3/uL (1.8-7.8); NEUTROPHILS % (AUTO) 75 % (42-75); PLATELET COUNT 188 10^3/uL (130-400); WHITE BLOOD COUNT 10.9 10^3/uL (4.3-11.0)
[2022-04-23] MEDS ORDERED: D5 LR IV SOLUTION 1,000 ML IV SCH (15:00)
[2022-04-23 15:14] LABS: BILIRUBIN,URINE NEGATIVE (NEGATIVE); CLARITY,URINE CLEAR; COLOR,URINE YELLOW; GLUCOSE, URINE (UA) NEGATIVE (NEGATIVE); KETONES,URINE NEGATIVE (NEGATIVE); LEUKOCYTE ESTERASE ,URINE 2+ (NEGATIVE); NITRITE,URINE NEGATIVE (NEGATIVE); PROTEIN,URINE NEGATIVE (NEGATIVE)
[2022-04-23 15:33] LABS: BACTERIA,URINE TRACE /HPF; WBC,URINE 0-2 /HPF
[2022-04-23] MEDS ORDERED: fentaNYL 2 mcg/ml BUPIVA 0.125 100 ML ONE (16:43)
--- NOTE | 2022-04-23 17:10 | History & Physical-OB/GYN ---
MELANIE GALINDO 04/23/22 1710: OB - Chief Complaint & HPI Date/Time Date of Admission: Date of Admission: Apr 23, 2022 at 14:23 Date seen by a Provider: Apr 23, 2022 Time Seen by a Provider: 17:00 Chief Complaint/History OB-Reason for Admission/Chief: Onset of Labor Hx : 4 Hx Para: 3 Expected Date of Delivery: May 08, 2022 Gestational Age in Weeks: 37 Gestational Age in Days: 6 Allergies and Home Medications Allergies Coded Allergies: aspirin (Verified Allergy, Unknown, facial swelling, 12/13/15) Patient Home Medication List Home Medication List Reviewed: Yes Vit W-Ca,Fe,FA(<1 mg) ( Vitamins) 1 Each Tablet, 1 EACH PO DAILY, (Reported) Entered as Reported by: JOSIAH BENEDICT on 11/27/16 1030 Last Action: Reviewed Discontinued Medications Cephalexin (Keflex) 500 Mg Capsule, 500 MG PO QID Discontinued Reason: No Longer Taking Prescribed by: ANDREZ ARCINIEGA on 10/01/17 1012 Last Action: Discontinued Cetirizine HCl (Zyrtec) 10 Mg Capsule, 10 MG PO DAILY, (Reported) Discontinued Reason: No Longer Taking Entered as Reported by: JOSIAH BENEDICT on 11/27/16 1028 Last Action: Discontinued Docusate Sodium (Docusate Sodium) 100 Mg Capsule, 100 MG PO BID Discontinued Reason: No Longer Taking Prescribed by: GAVINO MALHOTRA on 09/29/17 1148 Last Action: Discontinued Montelukast Sodium (Montelukast Sodium) 10 Mg Tablet, 10 MG PO HS, (Reported) Discontinued Reason: No Longer Taking Entered as Reported by: LAWRENCE BARRAGAN on 12/13/15 1238 Last Action: Discontinued Oxycodone HCl/Acetaminophen (Percocet 5-325 mg Tablet) 1 Each Tablet, 1 EACH PO Q4H Discontinued Reason: No Longer Taking Prescribed by: GAVINO MALHOTRA on 09/29/17 1148 Last Action: Discontinued Ranitidine HCl (Zantac) 150 Mg Tablet, 150 MG PO DAILY, (Reported) Discontinued Reason: No Longer Taking Entered as Reported by: JOSIAH BENEDICT on 11/27/16 1030 Last Action: Discontinued OB - History Hx of Present Care: Yes Obstetrical Complications: None Medical Complications: None Delivery History Hx Blood Disorders: No Adverse Rxn to Tranfusion: No (N/A) Immunizations Influenza Vaccine Up-to-Date: No; Not Current Hepatitis A: Yes Hepatitis B: Yes OB - Admission Exam Physical Exam Vitals: Vital Signs 04/23/22 15:38 Temp 37.4 Pulse 103 Resp 18 Pulse Ox 98 O2 Delivery Room Air Heart: Rhythm Normal Lungs: Clear Abdomen: Gravid Cervical Dilatation: 7cm Effacement: 75% (70%) Station: 0 Membranes: Intact Heart Rate: 130's Decelerations: No Decelerations Labs Laboratory Tests Test 04/23/22 14:30 04/23/22 14:50 Range/Units White Blood Count 10.9 4.3-11.0 10^3/uL Red Blood Count 4.39 3.80-5.11 10^6/uL Hemoglobin 12.6 11.5-16.0 g/dL Hematocrit 37 35-52 % Mean Corpuscular Volume 85 80-99 fL Mean Corpuscular Hemoglobin 29 25-34 pg Mean Corpuscular Hemoglobin Concent 34 32-36 g/dL Red Cell Distribution Width 15.0 H 10.0-14.5 % Platelet Count 188 130-400 10^3/uL Mean Platelet Volume 11.4 9.0-12.2 fL Immature Granulocyte % (Auto) 1 % Neutrophils (%) (Auto) 75 42-75 % Lymphocytes (%) (Auto) 18 12-44 % Monocytes (%) (Auto) 6 0-12 % Eosinophils (%) (Auto) 1 0-10 % Basophils (%) (Auto) 0 0-10 % Neutrophils # (Auto) 8.1 H 1.8-7.8 10^3/uL Lymphocytes # (Auto) 2.0 1.0-4.0 10^3/uL Monocytes # (Auto) 0.7 0.0-1.0 10^3/uL Eosinophils # (Auto) 0.1 0.0-0.3 10^3/uL Basophils # (Auto) 0.0 0.0-0.1 10^3/uL Immature Granulocyte # (Auto) 0.1 0.0-0.1 10^3/uL Urine Color YELLOW Urine Clarity CLEAR Urine pH 7.0 5-9 Urine Specific [place] 1.010 L 1.016-1.022 Urine Protein NEGATIVE NEGATIVE Urine Glucose (UA) NEGATIVE NEGATIVE Urine Ketones NEGATIVE NEGATIVE Urine Nitrite NEGATIVE NEGATIVE Urine Bilirubin NEGATIVE NEGATIVE Urine Urobilinogen 0.2 < = 1.0 MG/DL Urine Leukocyte Esterase 2+ H NEGATIVE Urine RBC (Auto) NEGATIVE NEGATIVE Urine RBC NONE /HPF Urine WBC 0-2 /HPF Urine Squamous Epithelial Cells 2-5 /HPF Urine Crystals NONE /LPF Urine Bacteria TRACE /HPF Urine Casts NONE /LPF Urine Mucus NEGATIVE /LPF Urine Culture Indicated NO OB - Assessment/Plan/Diagnosis Assessment Assessment: active labor Admission Dx 37 yo at 37.6 wga Active labor GBS negative Admission Status: Inpatient Order (span 2 midnights) Reason for Inpatient Admission: Active labor at 37 weeks Plan Plan: Expectant Management (AROM) Supervisory-Addendum Brief Verification & Attestation Participated in pt care: history, MDM, physical Personally performed: history, MDM Care discussed with: Medical Student Procedures: n/a Verification and Attestation of Medical Student E/M Service A medical student performed and documented this service in my presence. I reviewed and verified all information documented by the medical student and made modifications to such information, when appropriate. I personally performed the physical exam and medical decision making. ELLIS BRADSHAW 04/23/22 1837: Allergies and Home Medications Allergies Coded Allergies: aspirin (Verified Allergy, Unknown, facial swelling, 12/13/15) Patient Home Medication List Vit W-Ca,Fe,FA(<1 mg) ( Vitamins) 1 Each Tablet, 1 EACH PO DAILY, (Reported) Entered as Reported by: JOSIAH BENEDICT on 11/27/16 1030 Last Action: Reviewed Discontinued Medications Cephalexin (Keflex) 500 Mg Capsule, 500 MG PO QID Discontinued Reason: No Longer Taking Prescribed by: ANDREZ ARCINIEGA on 10/01/17 1012 Last Action: Discontinued Cetirizine HCl (Zyrtec) 10 Mg Capsule, 10 MG PO DAILY, (Reported) Discontinued Reason: No Longer Taking Entered as Reported by: JOSIAH BENEDICT on 11/27/16 1028 Last Action: Discontinued Docusate Sodium (Docusate Sodium) 100 Mg Capsule, 100 MG PO BID Discontinued Reason: No Longer Taking Prescribed by: GAVINO MALHOTRA on 09/29/17 1148 Last Action: Discontinued Montelukast Sodium (Montelukast Sodium) 10 Mg Tablet, 10 MG PO HS, (Reported) Discontinued Reason: No Longer Taking Entered as Reported by: LAWRENCE BARRAGAN on 12/13/15 1238 Last Action: Discontinued Oxycodone HCl/Acetaminophen (Percocet 5-325 mg Tablet) 1 Each Tablet, 1 EACH PO Q4H Discontinued Reason: No Longer Taking Prescribed by: GAVINO MALHOTRA on 09/29/17 1148 Last Action: Discontinued Ranitidine HCl (Zantac) 150 Mg Tablet, 150 MG PO DAILY, (Reported) Discontinued Reason: No Longer Taking Entered as Reported by: JOSIAH BENEDICT on 11/27/16 1030 Last Action: Discontinued OB - History Patient Past Medical History nc Supervisory-Addendum Brief Verification & Attestation Results interpretation: Verified all documentation Ellis Bradshaw, Apr 23, 2022,18:37 MELANIE GALINDO Apr 23, 2022 17:10 ELLIS BRADSHAW DO Apr 23, 2022 18:37
[2022-04-23] MEDS ORDERED: D5 LR IV SOLUTION 1,000 ML IV ONE (17:15)
[2022-04-23] MEDS ORDERED: LIDOCAINE PF 2% 5 ML (XYLOCAINE) VIAL ONE (17:35)
[2022-04-23] MEDS ORDERED: fentaNYL INJ 100 MCG/2 ML AMP ONE (17:35)
[2022-04-23] MEDS ORDERED: LACTATED RINGERS 1,000 ML IV SCH ×2 (18:15)
[2022-04-23] MEDS ORDERED: ONDANSETRON 4 MG/2 ML (SDV) Z0FRAN IV PRN ×2 (18:15)
[2022-04-23] MEDS ORDERED: fentaNYL 2 mcg/ml BUPIVA 0.125 100 ML EPI SCH ×2 (18:15)
[2022-04-23] MEDS ORDERED: NALOXONE 0.4 MG/ML 1 ML (NARCAN) VIAL IV PRN ×5 (18:15→22:45)
[2022-04-23] MEDS ORDERED: diphenhydrAMINE 50 MG/ML INJ (BENADRYL) IV PRN ×2 (18:15)
[2022-04-23] MEDS ORDERED: METOCLOPRAMIDE INJ 10 MG/2 ML (REGLAN) IV PRN ×2 (18:15)
[2022-04-23] MEDS ORDERED: OXYTOCIN PRE-MIX DRIP 500 ML IV SCH ×2 (18:45→22:45)
[2022-04-23] MEDS ORDERED: OXYTOCIN PRE-MIX DRIP 500 ML IV ONE (18:52)
[2022-04-23] MEDS ORDERED: CATHETER FLUSH 10 ML SYR IV SCH (22:00)
--- NOTE | 2022-04-23 22:35 | OB Labor & Delivery Record ---
L&D History Date of Service Date of Service: Apr 23, 2022 History Expected Date of Delivery: May 08, 2022 Gestational Age in Weeks: 37 Hx : 4 Hx Para: 3 Complications Events: Routine care Operative Indications (Cesarea: N/A-Vaginal Delivery Intrapartal Events: None L&D Stage1 Stage One Onset of Labor - Date: Apr 23, 2022 Monitors and Tracing Monitor Mode: External Heart Rate: 135 Monitor Accelerations: Uniform Station: -2 Sand Mixer Operator Variability: Average (6-10) Short Term Variability: Present Presentation: Vertex Vital Signs VS - Last 72 Hours, by Label 04/23/22 04/23/22 04/23/22 04/23/22 14:15 14:43 15:15 15:38 Temp 37.4 37.4 Pulse 112 102 99 103 Resp 20 18 18 18 B/P (MAP) 142/74 (96) 135/72 (93) 131/66 (87) Pulse Ox 98 98 98 98 O2 Delivery Room Air Room Air Room Air Room Air 04/23/22 04/23/22 04/23/22 04/23/22 15:45 16:15 16:45 17:15 Temp 37.4 37.1 Pulse 96 96 107 100 Resp 18 18 18 18 B/P (MAP) 133/64 (87) 128/69 (88) 139/76 (97) 133/70 (91) Pulse Ox 96 95 98 97 O2 Delivery Room Air Room Air Room Air Room Air 04/23/22 04/23/22 04/23/22 04/23/22 17:45 17:57 18:00 18:03 Pulse 103 96 98 98 Resp 18 20 20 20 B/P (MAP) 160/75 (103) 148/68 (94) 132/59 (83) 130/58 (82) Pulse Ox 99 98 99 99 O2 Delivery Room Air Room Air Room Air Room Air 04/23/22 04/23/22 04/23/22 04/23/22 18:06 18:09 18:12 18:14 Temp 37.0 Pulse 100 97 82 93 Resp 20 18 18 B/P (MAP) 128/60 (82) 119/55 (76) 114/55 (74) 122/60 (80) Pulse Ox 97 97 98 97 O2 Delivery Room Air Room Air Room Air Room Air 04/23/22 04/23/22 04/23/22 04/23/22 18:17 18:20 18:23 18:26 Pulse 92 94 100 95 Resp 18 18 18 18 B/P (MAP) 112/56 (74) 129/61 (83) 154/82 (106) 143/67 (92) Pulse Ox 99 99 98 98 O2 Delivery Room Air Room Air Room Air Room Air 04/23/22 04/23/22 04/23/22 04/23/22 18:29 18:32 18:35 18:44 Pulse 96 93 89 93 Resp 18 18 18 18 B/P (MAP) 132/61 (84) 140/66 (90) 141/70 (93) 147/75 (99) Pulse Ox 97 97 98 98 O2 Delivery Room Air Room Air Room Air Room Air 04/23/22 04/23/22 04/23/22 04/23/22 18:49 18:53 18:58 19:03 Temp 36.8 Pulse 96 93 93 97 Resp 18 18 18 18 B/P (MAP) 139/72 (94) 140/72 (94) 143/76 (98) 143/74 (97) Pulse Ox 99 98 98 99 O2 Delivery Room Air Room Air Room Air Room Air 04/23/22 04/23/22 04/23/22 04/23/22 19:18 19:33 19:48 20:03 Temp 37.3 Pulse 96 94 99 98 Resp 18 18 18 18 B/P (MAP) 137/69 (91) 142/78 (99) 143/73 (96) 144/78 (100) Pulse Ox 100 100 99 99 O2 Delivery Room Air Room Air Room Air Room Air 04/23/22 04/23/22 20:20 20:48 Pulse 97 99 Resp 18 18 B/P (MAP) 158/76 (103) 148/84 (105) Pulse Ox 100 99 O2 Delivery Room Air Room Air Rupture of Membranes Spontaneous Ruture of Membrane: No Amniotic Membrane Rupture Time: 1637 Amniotic Membrane Fluid Desc.: Clear Vaginal Bleeding Description: Normal Show Induction/Anesthesia Epidural Cath Placement - Time: 1748 Progress/Notes Patient admitted in active labor 5 cm dialated. She received an epidural after admission. SROM performed, followed by pitocin augmentation as contractions spaced out after epidural placed. She reached a max dose of 10 mu when she be came complete and 0 station. L&D Stage2 Stage Two Stage II Date: Apr 23, 2022 Monitors and Tracing Monitor Mode: External Heart Rate: 135 Monitor Decelerations: Variable Sand Mixer Operator Variability: Average (6-10) Short Term Variability: Present Position: Right Occiput Anterior Presentation: Vertex Cord Descript/Complications Cord Vessel Description: 3 Vessels Delivery Type Infant Delivery Method: Spontaneous Vaginal Anterior Shoulder: Left Episiotomy/Perineal Laceration Laceraction(s)/Extensions: No Condition of Infant Delivery 1 minute Comment: 8 5 minute Comment: 9 Notes Live male infant weight 6lbs 3 oz Condition of Infant Condition of : Living Exam: No Observed Abnormalities Resuscitation Resuscitation: N/A - Spontaneous Resp L&D Stage3 Stage Three Stage III Date: Apr 23, 2022 Pictocin Pitocin Administration mu/min: 10 Pitocin ml/hr: 10 Pitocin Administration Comment: 30 mu wide open after delivery of placenta Placenta Delivery Placenta Delivery: Spontaneous Delivery Summary Summary Estimated blood loss (mL): 250 Attending at delivery: Ramy White DO Condition of Delivery Examined: Cervix Examined, Uterus Explored Post Hemorrhage: No Condition of Mother stable Condition of (s) stable RAMY WHITE DO Apr 23, 2022 22:35
--- NOTE | 2022-04-23 22:36 | Discharge Inst-Women's Service ---
Discharge Inst-Women's Serv Depart Medication/Instructions New, Converted or Re-Newed RX: Transmitted to Pharmacy Final Diagnosis PPD 2 NVD Problems Reviewed?: Yes Consults/Follow Up Additional Follow Up: Yes Orders/Referrals Dr. White in 6 weeks Activity Activity: Activity as Tolerated Driving Instructions: No Driving for 1 Week NO SMOKING: NO SMOKING Nothing Inside Vagina: No Douching, No [place], No Tampons Diet Discharge Diet: No Restrictions Symptoms to Report to : Bleeding Excessive, Pain Increased, Fever Over 101 Degrees F, Vaginal Bleeding Increase, Questions/Concerns For Any Problems or Questions: Contact Your Physician RAMY WHITE DO Apr 23, 2022 22:36
[2022-04-23] MEDS ORDERED: IBUP-844 PO (22:37)
[2022-04-23] MEDS ORDERED: FERR325T24 PO (22:37)
[2022-04-23] MEDS ORDERED: DOCU100C37 PO (22:37)
[2022-04-23] MEDS ORDERED: ACHD5005 PO (22:37)
[2022-04-23] MEDS ORDERED: DIBUCAINE 1% OINTMENT 28 GM TUBE TOP PRN (22:45)
[2022-04-23] MEDS ORDERED: BENZOCAINE/MENTHOL (DERMOPLAST) 56 ML CAN TP PRN (22:45)
[2022-04-23] MEDS ORDERED: WITCH HAZEL(TUCKS) 40 EA JAR TOP PRN (22:45)
[2022-04-23] MEDS ORDERED: MEASLES,MUMPS,RUBELLA 1 EA INJ SQ ONE (22:45)
[2022-04-23] MEDS ORDERED: IBUPROFEN 600 MG (MOTRIN) TAB PO SCH (22:45)
[2022-04-23] MEDS ORDERED: TETANUS,DIPTH,PERTUSS P/F (BOOSTRIX) 0.5 ML VIAL IM ONE (22:45)
[2022-04-24] VITALS (8 sets, daily range): BP systolic 114–130; BP diastolic 56–74
[2022-04-24] MEDS: ACETAMINOPHEN 500 MG TAB (TYLENOL) PO PRN ×4 (00:47→19:06)
[2022-04-24 05:43] LABS: BASOPHILS % (AUTO) 0 % (0-10); EOSINOPHILS # (AUTO) 0.1 10^3/uL (0.0-0.3); EOSINOPHILS % (AUTO) 1 % (0-10); HEMATOCRIT 34 % (35-52); HEMOGLOBIN 11.1 g/dL (11.5-16.0); LYMPHOCYTES # (AUTO) 2.3 10^3/uL (1.0-4.0); LYMPHOCYTES % (AUTO) 15 % (12-44); MEAN CORPUSCULAR HEMOGLOBIN 28 pg (25-34); MEAN CORPUSCULAR HGB CONC 33 g/dL (32-36); MEAN CORPUSCULAR VOLUME 85 fL (80-99); MEAN PLATELET VOLUME 12.1 fL (9.0-12.2); MONOCYTES # (AUTO) 1.2 10^3/uL (0.0-1.0); MONOCYTES % (AUTO) 8 % (0-12); NEUTROPHILS # (AUTO) 11.3 10^3/uL (1.8-7.8); NEUTROPHILS % (AUTO) 75 % (42-75); PLATELET COUNT 165 10^3/uL (130-400)
[2022-04-24] MEDS ORDERED: CATHETER FLUSH 10 ML SYR IV SCH (06:00)
[2022-04-24] MEDS: PRENATAL VITAMIN 1 EA TAB PO SCH (07:07)
[2022-04-24] MEDS: FERROUS SULF 325 MG (IRON) TAB PO SCH (09:43)
[2022-04-24] MEDS: DOCUSATE SODIUM 100 MG (COLACE) CAP PO SCH ×2 (09:43→20:38)
--- NOTE | 2022-04-24 09:54 | Anesthesia-Regional Post-Op ---
Regional Patient Condition Mental Status: Alert, Oriented x3 Circulation: Same as Pre-Op Headache: Absent Sensation: Full Recovery Motor Block: Absent Post Op Complications Complications None Follow Up Care/Instructions Patient Instructions None needed. Anesthesia/Patient Condition Patient is doing well, no complaints, stable vital signs, no apparent adverse anesthesia problems. No complications reported per nursing. ENDER WELCH CRNA Apr 24, 2022 09:54
--- NOTE | 2022-04-24 10:31 | Postpartum Progress Note ---
Note Note Day # 1 Subjective: Patient is without complaints. Ambulating, voiding. Tolerating a regular diet without nausea or vomiting. Normal lochia. Pain is well controlled with oral pain medications. Physical Exam: General - Alert and oriented, no apparent distress Abdomen - Soft, appropriately tender to palpation, non-distended, fundus firm at umbilicus Extremities - no edema, negative Vivi's bilaterally Assessment: Post- day # 1, status post vaginal delivery Recovering well, hemodynamically stable Acute blood loss anemia Plan: Routine care. Encourage breast feeding. Encourage ambulation. Ferrous sulfate supplementation. Plan for discharge tomorrow Vitals - Labs Vital Signs - I&O Vital Signs Date Time Temp Pulse Resp B/P (MAP) Pulse Ox O2 Delivery O2 Flow Rate FiO2 04/24/22 09:50 36.5 98 16 119/63 (81) 97 Room Air 04/24/22 03:27 36.6 86 18 114/63 (80) 99 Room Air 04/24/22 00:15 93 18 123/57 (79) Room Air 04/24/22 00:02 123/57 (79) 04/24/22 00:00 93 18 114/57 (76) Room Air 04/23/22 23:48 93 114/57 (76) Room Air 04/23/22 23:45 98 18 141/63 (89) Room Air 04/23/22 23:33 98 141/63 (89) Room Air 04/23/22 23:19 100 18 140/62 (88) Room Air 04/23/22 23:18 100 140/62 (88) Room Air 04/23/22 23:03 103 18 146/68 (94) Room Air 04/23/22 23:02 103 146/68 (94) Room Air 04/23/22 22:48 101 18 142/67 (92) Room Air 04/23/22 22:47 101 142/67 (92) Room Air 04/23/22 22:33 105 18 141/70 (93) Room Air 04/23/22 21:34 110 18 139/63 (88) 100 Room Air 04/23/22 21:20 107 18 132/63 (86) 99 Room Air 04/23/22 21:06 93 18 148/70 (96) 99 Room Air 04/23/22 20:48 99 18 148/84 (105) 99 Room Air 04/23/22 20:20 97 18 158/76 (103) 100 Room Air 04/23/22 20:03 37.3 98 18 144/78 (100) 99 Room Air 04/23/22 19:48 99 18 143/73 (96) 99 Room Air 04/23/22 19:33 94 18 142/78 (99) 100 Room Air 04/23/22 19:18 96 18 137/69 (91) 100 Room Air 04/23/22 19:03 97 18 143/74 (97) 99 Room Air 04/23/22 18:58 36.8 93 18 143/76 (98) 98 Room Air 04/23/22 18:53 93 18 140/72 (94) 98 Room Air 04/23/22 18:49 96 18 139/72 (94) 99 Room Air 04/23/22 18:44 93 18 147/75 (99) 98 Room Air 04/23/22 18:35 89 18 141/70 (93) 98 Room Air 04/23/22 18:32 93 18 140/66 (90) 97 Room Air 04/23/22 18:29 96 18 132/61 (84) 97 Room Air 04/23/22 18:26 95 18 143/67 (92) 98 Room Air 04/23/22 18:23 100 18 154/82 (106) 98 Room Air 04/23/22 18:20 94 18 129/61 (83) 99 Room Air 04/23/22 18:17 92 18 112/56 (74) 99 Room Air 04/23/22 18:14 37.0 93 18 122/60 (80) 97 Room Air 04/23/22 18:12 82 18 114/55 (74) 98 Room Air 04/23/22 18:09 97 119/55 (76) 97 Room Air 04/23/22 18:06 100 20 128/60 (82) 97 Room Air 04/23/22 18:03 98 20 130/58 (82) 99 Room Air 04/23/22 18:00 98 20 132/59 (83) 99 Room Air 04/23/22 17:57 96 20 148/68 (94) 98 Room Air 04/23/22 17:45 103 18 160/75 (103) 99 Room Air 04/23/22 17:15 37.1 100 18 133/70 (91) 97 Room Air 04/23/22 16:45 107 18 139/76 (97) 98 Room Air 04/23/22 16:15 96 18 128/69 (88) 95 Room Air 04/23/22 15:45 37.4 96 18 133/64 (87) 96 Room Air 04/23/22 15:38 37.4 103 18 98 Room Air 04/23/22 15:15 99 18 131/66 (87) 98 Room Air 04/23/22 14:43 102 18 135/72 (93) 98 Room Air 04/23/22 14:15 37.4 112 20 142/74 (96) 98 Room Air Labs Laboratory Tests 04/23/22 14:30: White Blood Count 10.9, Red Blood Count 4.39, Hemoglobin 12.6, Hematocrit 37, Mean Corpuscular Volume 85, Mean Corpuscular Hemoglobin 29, Mean Corpuscular Hemoglobin Concent 34, Red Cell Distribution Width 15.0H, Platelet Count 188, Mean Platelet Volume 11.4, Immature Granulocyte % (Auto) 1, Neutrophils (%) (Auto) 75, Lymphocytes (%) (Auto) 18, Monocytes (%) (Auto) 6, Eosinophils (%) (Auto) 1, Basophils (%) (Auto) 0, Neutrophils # (Auto) 8.1H, Lymphocytes # (Auto) 2.0, Monocytes # (Auto) 0.7, Eosinophils # (Auto) 0.1, Basophils # (Auto) 0.0, Immature Granulocyte # (Auto) 0.1, Syphilis Serology Non-Reactive 04/23/22 14:50: Urine Color YELLOW, Urine Clarity CLEAR, Urine pH 7.0, Urine Specific Robert Lee 1.010L, Urine Protein NEGATIVE, Urine Glucose (UA) NEGATIVE, Urine Ketones NEGATIVE, Urine Nitrite NEGATIVE, Urine Bilirubin NEGATIVE, Urine Urobilinogen 0.2, Urine Leukocyte Esterase 2+H, Urine RBC (Auto) NEGATIVE, Urine RBC NONE, Urine WBC 0-2, Urine Squamous Epithelial Cells 2-5, Urine Crystals NONE, Urine Bacteria TRACE, Urine Casts NONE, Urine Mucus NEGATIVE, Urine Culture Indicated NO 04/24/22 05:18: White Blood Count 15.0H, Red Blood Count 3.93, Hemoglobin 11.1L, Hematocrit 34L, Mean Corpuscular Volume 85, Mean Corpuscular Hemoglobin 28, Mean Corpuscular Hemoglobin Concent 33, Red Cell Distribution Width 15.0H, Platelet Count 165, Mean Platelet Volume 12.1, Immature Granulocyte % (Auto) 1, Neutrophils (%) (Auto) 75, Lymphocytes (%) (Auto) 15, Monocytes (%) (Auto) 8, Eosinophils (%) (Auto) 1, Basophils (%) (Auto) 0, Neutrophils # (Auto) 11.3H, Lymphocytes # (Auto) 2.3, Monocytes # (Auto) 1.2H, Eosinophils # (Auto) 0.1, Basophils # (Auto) 0.0, Immature Granulocyte # (Auto) 0.1 RON MOHAMUD APRN Apr 24, 2022 10:31
[2022-04-24] MEDS: HYDROcodone/APAP 5 MG/325 MG (LORTAB) TAB PO PRN (21:58)
[2022-04-25 02:46] VITALS: BP 135/75
[2022-04-25] MEDS: HYDROcodone/APAP 5 MG/325 MG (LORTAB) TAB PO PRN (02:48)
[2022-04-25] MEDS: FERROUS SULF 325 MG (IRON) TAB PO SCH (09:39)
[2022-04-25] MEDS: PRENATAL VITAMIN 1 EA TAB PO SCH (09:39)
[2022-04-25] MEDS: DOCUSATE SODIUM 100 MG (COLACE) CAP PO SCH (09:39)
[2022-04-25] MEDS: ACETAMINOPHEN 500 MG TAB (TYLENOL) PO PRN (09:39)
[2022-04-25 09:43] VITALS: BP 123/58
--- NOTE | 2022-04-25 09:50 | Short Stay Summary ---
Discharge Summary Hospital Course Was the Problem List Reviewed?: Yes Final Diagnosis: Delivery at 37 weeks EGA Hospital Course Date of Admission: Apr 23, 2022 at 14:23 Admission Diagnosis : Family Physician/Provider: No,Local Physician Date of Discharge: 04/25/22 Discharge Diagnosis: [ ] Hospital Course: [ ] Labs and Pending Lab Test: Home Meds Active Docusate Sodium 100 Mg Capsule 100 Mg PO BID PRN HYDROcodone/APAP 5 MG/325 MG TAB (Acetaminophen/Hydrocodone Bitart) 1 Tab Tab 1 Ea PO Q4H PRN Ibu (Ibuprofen) 600 Mg Tablet 600 Mg PO Q6H Ferosul (Ferrous Sulfate) 325 Mg (65 Mg Iron) Tablet 325 Mg PO DAILY Reported Vitamins ( Vit W-Ca,Fe,FA(<1 mg)) 1 Each Tablet 1 Each PO DAILY Assessment/Pt Instructions Pt doing well Ready for discharge Discharge Instructions Discharge Diet: No Restrictions Activity as Tolerated: Yes Discharge Physical Examination General Appearance: Alert, Oriented X3, Cooperative HEENT: Atraumatic, PERRLA Respiratory: Normal Air Movement Cardiovascular: Regular Rate Abdominal: Soft, No Tenderness Extremities: No Edema Allergies: Coded Allergies: NSAIDS (Non-Steroidal Anti-Inflamma (Verified Allergy, Mild, ithcing, 04/24/22) aspirin (Verified Allergy, Unknown, facial swelling, 12/13/15) Discharge Summary Date of Admission Apr 23, 2022 at 14:23 Date of Discharge 04/24/2022 Discharge Date: Apr 25, 2022 Admission Diagnosis Labor at 37 weeks Consults/Procedures Procedures Discharge Diagnosis Uncomplicated Vaginal Delivery Liveborn BELA ROMAN III, DO Apr 25, 2022 09:50
[2022-04-25] MEDS ORDERED: ACET500P24 PO (12:07)
[2022-04-25 14:34] VITALS: BP 130/65
[2022-04-25 14:50] VITALS: BP 130/65
== END 2022-04-25 14:50 | disposition home or self-care (01) | DRG 806 ==
LOC: LDRP 14:23
PROVIDERS: ADMIT Obstetrics & Gynecology; ATTEND Obstetrics & Gynecology
PROC: 10E0XZZ Delivery of Products of Conception, External Approach (ICD-10-PCS; principal; 2022-04-23)
PROC: 10907ZC Drainage of Amniotic Fluid, Therapeutic from Products of Conception, Via Natural or Artificial Opening (ICD-10-PCS; 2022-04-23)
DX: O90.81 Anemia of the puerperium (principal); D62 Acute posthemorrhagic anemia; Z37.0 Single live birth; Z3A.37 37 weeks gestation of pregnancy; Z28.310 Unvaccinated for COVID-19
CPT/HCPCS: 36415; 81000; 85025; 86780; 86850; 86900; 86901